=== PATIENT | female | born 1950 | race African-American/Black ===

== ENCOUNTER 2018-03-22 11:59 | Day surgery (SDC) | payer MEDICARE, MEDICAID, SELFPAY ==
[2018-03-22] VITALS (7 sets, daily range): BP systolic 125–142; BP diastolic 67–84; PULSE 66–74; RESP 16–18; TEMP 36.3–36.6; O2SAT 94–95; BMI 48.4
--- NOTE | 2018-03-22 13:30 | LIP_PTH ---
PATIENT: FRANCISCO J SYED LOC: [facility] [place] U#:[id number] AGE/SX: 68/F ROOM: RE03/22/[address]: Dr. Stephani Forte MD : 1950 BED: DIS: 03/22/2018 SPEC #: [id number] RECD: 03/25/18 10:16 STATUS: [place] #: [id number] STEPHANE: 03/22/18 13:[address]: Stephani Forte DEPT: SURGICAL PATHOLOGY RECD BY: Billie Alfredo ENTERED: 03/25/18 11:02 SP TYPE: LIPOMA OTHR DR: Dr. Zain Virgen, DO Tissues: Soft tissues, NOS Procedures: Surgery Specimen Level III HEADER OPERATION: Excision, lipoma, mid back PRE-OP DIAGNOSIS: Back lipoma TISSUE SUBMITTED: Lipoma of mid back MICROSCOPIC DIAGNOSIS Lipoma of mid back, biopsy: Mature adipose tissue, consistent with lipoma. SJ:magdi 03/26/18 MICROSCOPIC DESCRIPTION Slides are reviewed. GROSS DESCRIPTION Received in fixative is one container labeled with the patient's name and designated lipoma of back. The specimen consists of multiple pieces of disrupted yellow adipose tissue that in aggregate measure 8 x 8 x 4 cm. Sections reveal yellow adipose cut surfaces without area of necrosis, hemorrhage or cystic degeneration. Claim Clinician sections are submitted in two cassettes. / SJ:magdi 03/25/18 TC:1 CPT: 86640
--- NOTE | 2018-03-22 15:25 | PCM.IMDPSTOP ---
Immediate Post-Op Note Date of Procedure: 03/22/18 Primary Surgeon/Physician: Stephani Forte package handler: NOT,DEFINED Pre-Operative Diagnosis: localized mass of back Post-Operative Diagnosis: large lipomatous lesion of back - subcutaneous Surgery/Procedure Performed:: excision of subcutaneous lipomatous lesion Description of Surgical Findings:: large lipomatous lesion of subcutaneous area of back - 15 cm maximum dimension Estimated Blood Loss: 5 ml Specimen's removed: lipomatous lesion of mid back Type of Anesthesia:: Local MAC ASA Class: ASA3 Severe Disease
--- NOTE | 2018-03-22 15:27 | PCM.OPRPT ---
Report of Operation Date of Procedure: 03/22/18 Pre-Operative Diagnosis: localized mass of back Post-Operative Diagnosis: large lipomatous lesion of back - subcutaneous Surgery/Procedure Performed:: excision of subcutaneous lipomatous lesion Description of Surgical Findings:: large lipomatous lesion of subcutaneous area of back - 15 cm maximum dimension transitional care liaison: NOT,DEFINED Type of Anesthesia:: Local MAC Anesthesiologist: Andria Dorantes Specimen's removed: lipomatous lesion of mid back Estimated Blood Loss (mL): 5 ml Fluids Replaced: see anesthesia note Description of Procedure: Didi Jeronimo is a 68 y/o BF who presents with large localized mass of the mid back. It is irritating due to its location and size and causes discomfort when she lies supine, due to pressure applied to the area. She therefore requests removal of this lesion. After informed consent was given, the patient was brought to the operating room. Appropriate time out protocol was followed. She was then placed in the left lateral decubitus position with appropriate padding to all pressure areas. IV conscious sedation was then administered by the anesthesia provider. The patients back was then prepped with a surgical skin preparation and sterile surgical drapes were placed. The skin and subcutaneous tissues in and around the lesion were then infiltrated with 1% xylocaine with epinephrine. A skin incision was then made with a 15 blade scalpel overlying the lesion vertically. The incision was carried down through to the subcutaneous tissues. Any hemorrhage was controlled with electrocautery. The lesion was palpated out and then from the surrounding tissues using blunt and sharp dissection. Any bleeding was controlled by electrocoagulation. The lesion was a lipomatous lesion that interdigitated with the subcutaneous fibrous tissue. The lesion was then removed from the cavity and forwarded to pathology for analysis. The cavity was carefully examined, no further suspicious lesions were noted. Hemostasis was achieved with electrocautery. The dermis was reapproximated with interrupted 3-0 vicryl suture. The skin incision was closed using 4-0 monocryl in a running subcuticular fashion. Steristrips and Cavilon was used to reinforce the skin closure and a proper sterile dressing was applied. The patient tolerated the procedure well and was brought to the Recovery Room in stable condition. - Complications none noted
--- NOTE | 2018-03-22 15:31 | PCM.DC.GS ---
Discharge Diet: No Restrictions Discharge Activity: Return to Normal Activity, May not drive while taking narcotic pain medications. Call your doctor if your incision/area has: Continuous Slow Oozing, Foul Smelling Discharge Call your doctor if you observe: Fever of 101 or Higher Additional Dressing/Incision Instructions:: Leave dressing in place. may get wet in shower. Do not soak - no tub baths/swimming Allergies/Adverse Reactions: Allergies No Known Allergies Allergy (Verified 03/21/18 10:49) Medications to take at Discharge Albuterol IH (ProAir) [Proair Hfa (SP)Vent Pts] 2 puff INHALATION Q4H PRN PRN 06/07/16 Budesonide/Formoterol 160/4.5 [Symbicort 160/4.5 Mcg Inhaler (SP)] 2 puff INHALATION BID 06/07/16 Carvedilol [Coreg] 12.5 mg PO BID 06/07/16 Citalopram [Celexa] 10 mg PO DAILY 06/07/16 Gabapentin [Neurontin] 300 mg PO TIDCM 06/07/16 Omeprazole [Prilosec] 40 mg PO DAILY 06/07/16 Oxygen, Home [Home Oxygen] 2 lpm NASAL QHS 06/07/16 Tiotropium Lanse [Spiriva 18 MCG] 1 puff INHALATION DAILY 06/07/16 Triamterene 75MG/Hctz 50MG [Maxzide] 1 tablet PO DAILY 06/07/16 Anastrozole [Arimidex] 1 mg PO DAILY 03/21/18 Rivaroxaban [Xarelto] 20 mg PO DAILY 03/21/18 Primary Care Physician: Zain Virgen [Primary Care Provider] - Test Results: Test results from this visit will be discussed in further detail at your follow-up appointment, if applicable. Please Follow Up With: Stephani Forte MD - call When: to be seen in 7-10 days, please call for date and time, thank you
== END 2018-03-22 16:06 | disposition home or self-care (01) ==
LOC: SDC 12:02 → AC 12:07
PROVIDERS: Family Provider Family Medicine; PCP Family Medicine; Visit Provider Surgery
PROC: (CPT 21931; principal; 2018-03-22 13:15)
DX: D17.1 Benign lipomatous neoplasm of skin and subcutaneous tissue of trunk (principal); I10 Essential (primary) hypertension; J44.9 Chronic obstructive pulmonary disease, unspecified; G62.9 Polyneuropathy, unspecified; K21.9 Gastro-esophageal reflux disease without esophagitis; F32.9 Major depressive disorder, single episode, unspecified; E66.01 Morbid (severe) obesity due to excess calories; Z68.42 Body mass index [BMI] 45.0-49.9, adult; Z99.81 Dependence on supplemental oxygen; Z79.01 Long term (current) use of anticoagulants; Z79.899 Other long term (current) drug therapy; Z86.718 Personal history of other venous thrombosis and embolism; Z85.3 Personal history of malignant neoplasm of breast; Z87.891 Personal history of nicotine dependence
CPT/HCPCS: 21931; 88304; J7050; J7120; J2405

== ENCOUNTER 2021-08-04 07:16 | Outpatient (CLI) | payer MEDICARE, MEDICAID, SELFPAY ==
--- NOTE | 2021-08-04 | BRBX_PTH ---
PATIENT: FRANCISCO J SYED LOC: [facility] U#:[id number] AGE/SX: 71/F ROOM: RE08/04/[address]: Dr. Stephani Forte MD : 1950 BED: DIS: 08/04/2021 SPEC #: [id number] RECD: 08/04/21 08:56 STATUS: [place] [place] #: [id number] STEPHANE: 08/04/21 00:[address]: Stephani Forte DEPT: SURGICAL PATHOLOGY RECD BY: Cheikh Temple ENTERED: 08/04/21 12:37 SP TYPE: BREAST BX OTHR DR: Dr. Zain Virgen DO Tissues: Left breast, NOS Procedures: Surgery Specimen Level IV HEADER OPERATION: Left breast stereotactic needle core biopsy PRE-OP DIAGNOSIS: Left breast microcalcifications 12 o?clock middle depth TISSUE SUBMITTED: Left breast core tissue ISCHEMIC TIME: 1 minute FIXATION TIME: 11.5 hours MICROSCOPIC DIAGNOSIS Left breast, stereotactic core biopsy: Involutional change with hyalinization and associated Banal microcalcifications. Mild nonproliferative fibrocystic change. AM:magdi 08/05/2021 MICROSCOPIC DESCRIPTION Slides are reviewed. GROSS DESCRIPTION Received in fixative is one container labeled with the patient's name and designated left breast. The specimen consists of multiple elongated fragments of booth-yellow fibroadipose tissue that in aggregate measure 5 x 3 x 0.3 cm. The entire specimen is submitted in two cassettes. / SJ:magdi 08/04/2021 TC:5 CPT: 11287
--- NOTE | 2021-08-04 12:11 | OP.PCM_ITS ---
Report of Operation Date of Procedure: 08/04/21 Pre-Operative Diagnosis: abnormal calcifications on left breast mammograms Post-Operative Diagnosis: same Surgery/Procedure Performed:: left stereotactic breast biopsy Surgeon: Stephani Forte Type of Anesthesia: Local Specimen's removed: left breast tissue Estimated Blood Loss (mL): minimal Description of Procedure: After informed consent was given, the patient was brought into the Breast Biopsy suite. Appropriate time out protocol was followed. The patient was placed in the prone position on the stereotactic biopsy table. The patient?s left breast was then placed in the opening at the head of the biopsy table. A polisher apprentice compression mammogram was then obtained in the CC view. The suspicious radiological lesion was thus identified. Stereo pictures of the lesion were then taken for XYZ coordinates. The Mammotome biopsy stylus was then positioned where it would be entering into the patient?s breast. The skin at this site was then cleansed with a surgical skin preparation. The skin and subcutaneous tissues at this site were then infiltrated with 1% xylocaine. A small skin incision was made with an 11 blade scalpel. The biopsy stylus was then positioned into the patient?s breast at the proper coordinates of depth. Using the Mammotome vacuum-assist device, several core samples of breast tissue were obtained. A specimen mammogram was the obtained. It revealed that the abnormal calcifications were within the specimen. I reviewed this personally and concluded that the tissue sampling was adequate. A hemostatic marker clip was then placed into the biopsy cavity and a polisher apprentice film revealed that it was properly deployed. The patient was then placed in the supine position and pressure was applied to the breast until no active bleeding was noted. Steristrips were applied to reapproximate the skin. A unilateral mammogram in the CC and MLO view were then taken which revealed that the marker clip was in the same area as the previous suspicious lesion. The patient tolerated the procedure well and was discharged from the Breast Biopsy suite in good condition. Complications none noted
== END 2021-08-04 23:59 | disposition short-term general hospital (02) ==
PROVIDERS: PCP Family Medicine; Visit Provider Surgery
DX: N60.12 Diffuse cystic mastopathy of left breast (principal); J44.9 Chronic obstructive pulmonary disease, unspecified; R92.1 Mammographic calcification found on diagnostic imaging of breast; I10 Essential (primary) hypertension; K21.9 Gastro-esophageal reflux disease without esophagitis; G62.9 Polyneuropathy, unspecified; M19.90 Unspecified osteoarthritis, unspecified site; F32.A Depression, unspecified; F41.9 Anxiety disorder, unspecified; Z79.02 Long term (current) use of antithrombotics/antiplatelets; Z79.899 Other long term (current) drug therapy; Z86.718 Personal history of other venous thrombosis and embolism; Z87.891 Personal history of nicotine dependence; Z80.3 Family history of malignant neoplasm of breast
CPT/HCPCS: 19081; 88305; J7050; A4648